=== PATIENT | female | born 1980 | race Caucasian/White ===

== ENCOUNTER 2017-11-28 19:46 | Emergency (ER) | payer MEDICAID ==
[2017-11-28 19:56] VITALS: RESP 16; TEMP 98.2
--- NOTE | 2017-11-28 20:55 | EDPHY ---
H & P Time Seen by Provider: 11/28/17 20:31 HPI/ROS: CHIEF COMPLAINT: Numbness left-sided body HISTORY OF PRESENT ILLNESS: 37-year-old female presents to the emergency department with numbness to her chin and left side of her body. Symptoms started while she was watching a movie around 330 this afternoon. She initially noted some numbness to her chin and then within a few minutes she noted some numbness to the left side of her neck all the way down to the left side of her ft. She was feeling a bit weak on the left side. She does not have a headache. No visual symptoms. She has never had this happen in the past. No chest pain or difficulty breathing. No fevers or chills. No reported trauma. She denies feeling dizzy. REVIEW OF SYSTEMS: Constitutional: No fever, no chills. Eyes: No double or blurry vision. ENT: No sore throat. Respiratory: No cough, no shortness of breath. Cardiac: No chest pain. Gastrointestinal: No abdominal pain, vomiting or diarrhea. Genitourinary: No dysuria. Musculoskeletal: No neck or back pain. Skin: No rashes. Neurological: No headache. Past Medical/Surgical History: Negative Social History: Single and lives in [place] Smoking Status: Former smoker Physical Exam: General Appearance: Alert, no distress. Vital signs are stable. Eyes: Pupils equal and round. Extraocular motions are all intact. ENT: Mouth: Mucous membranes moist. Respiratory: No wheezing, rhonchi, or rales, lungs are clear to auscultation. Cardiovascular: Regular rate and rhythm. Gastrointestinal: Abdomen is soft and nontender, no masses, no rebound or guarding, bowel sounds normal. Neurological: Alert and oriented x 3, cranial nerves II through XII grossly intact Skin: Warm and dry, no rashes. Musculoskeletal: Nontender to palpate along the cervical, thoracic or lumbar spine. Neck is supple. Extremities: Full range of motion and no peripheral edema. Psychiatric: Patient is oriented X 3, there is no agitation. Constitutional: Initial Vital Signs Temperature (C) 36.8 C 11/28/17 19:49 Heart Rate 71 11/28/17 19:49 Respiratory Rate 16 11/28/17 19:49 Blood Pressure 130/56 H 11/28/17 19:49 O2 Sat (%) 99 11/28/17 19:49 O2 Delivery Mode Room Air Allergies/Adverse Reactions: gluten Allergy (Mild, Verified 11/28/17 19:56) Sulfa (Sulfonamide Antibiotics) Allergy (Verified 11/28/17 19:56) Home Medications: Medication Instructions Recorded No Known Home Meds 11/23/13 Medical Decision Making - Diagnostics Imaging Results: Imaging Impressions Brain MRI 11/28/17 20:59 Impression: Normal MRI of the brain without contrast. Results called and discussed with Amirah Forde PA-C at 11/28/2017 22:58. Imaging: Discussed imaging studies w/ call center manager Radiologist ED Course/Re-evaluation: 37-year-old female presents to the emergency department with numbness noted to the left side of her body as well as her chin. Case was discussed with Dr. Gael Ferreira, secondary supervising physician, who did not directly evaluate the patient but agrees with treatment and plan. MRI of the brain without contrast was obtained which was reported to me as normal by Dr. Terry Ramos. Patient was reassured. She was given urology referral. She will return if she has any other change in symptoms or feels worse. Differential Diagnosis: Including but not limited to multiple sclerosis, encephalopathy, CVA, TIA, embolism Departure - Departure Disposition: Home, Routine, Self-Care Clinical Impression: Paresthesias Condition: Good Instructions: Paresthesia (ED) Additional Instructions: Activity as tolerated. Return to the emergency department you develop headache or any other change in symptoms. Referrals: Chayito Orona PA [Primary Care Provider] - As per Instructions Wicho Amaro DO [Medical Doctor] - As per Instructions (Neurologist )
[2017-11-28 23:38] VITALS: BP 116/51; PULSE 63; O2SAT 96
== END 2017-11-28 23:36 | disposition home or self-care (01) ==
DX: R20.2 Paresthesia of skin (principal); Z87.891 Personal history of nicotine dependence

== ENCOUNTER → 2019-02-18 | Outpatient (CLI) | payer MEDICAID | LOC: FIMAGING 15:04 | PROVIDERS: ATTEND Physician Assistant Medical | DX: M25.561 Pain in right knee (principal) ==